=== PATIENT | female | born 1995 | race Caucasian/White ===

== ENCOUNTER 2017-08-25 05:46 | Emergency (ER) | payer BC, OTHER ==
--- NOTE | 2017-08-25 06:37 | ED ---
General Adult HPI - General Chief complaint: Extremity Injury, Upper Stated complaint: hand injury Time Seen by Provider: 08/25/17 06:19 Source: patient, RN notes reviewed, old records reviewed Mode of arrival: ambulatory Limitations: no limitations - History of Present Illness Initial comments: This is a 22-year-old female ER for evaluation. She comes slamming her left thumb in the out of her car. Patient was taking out some groceries at the trunk with her hands to place almost stuck in trunk. Patient was able to get her some out of the truck and comes here for evaluation. She has severe left thumb pain no modifying factors for pain, is able to move thumb in all directions - Related Data Previous Rx's Medication Instructions Recorded Naproxen [Naprosyn] 500 mg PO Q12HR PRN #30 tab 08/25/17 Allergies Allergy/AdvReac Type Severity Reaction Status Date / Time No Known Allergies Allergy Verified 08/25/17 05:54 Review of Systems ROS Statement: Those systems with pertinent positive or pertinent negative responses have been documented in the HPI. ROS Other: All systems not noted in ROS Statement are negative. Past Medical History Additional Past Medical History / Comment(s): Ectopic , genital warts History of Any Multi-Drug Resistant Organisms: None Reported Past Surgical History: Ear Surgery Additional Past Surgical History / Comment(s): Fallopian tube removed - ectopic Past Psychological History: Anxiety Smoking Status: Never smoker Past Alcohol Use History: None Reported Past Drug Use History: None Reported General Exam Limitations: no limitations General appearance: alert, in no apparent distress Head exam: Present: atraumatic, normocephalic, normal inspection Eye exam: Present: normal appearance, PERRL, EOMI. Absent: scleral icterus, conjunctival injection, periorbital swelling ENT exam: Present: normal exam, mucous membranes moist Neck exam: Present: normal inspection. Absent: tenderness, meningismus, lymphadenopathy Respiratory exam: Present: normal lung sounds bilaterally. Absent: respiratory distress, wheezes, rales, rhonchi, stridor Cardiovascular Exam: Present: regular rate, normal rhythm, normal heart sounds. Absent: systolic murmur, diastolic murmur, rubs, gallop, clicks GI/Abdominal exam: Present: soft, normal bowel sounds. Absent: distended, tenderness, guarding, rebound, rigid Extremities exam: Present: normal inspection, full ROM, normal capillary refill. Absent: tenderness, pedal edema, joint swelling, calf tenderness Back exam: Present: normal inspection Neurological exam: Present: alert, oriented X3, CN II-XII intact Psychiatric exam: Present: normal affect, normal mood Skin exam: Present: warm, dry, intact, normal color. Absent: rash Course Vital Signs 08/25/17 05:50 Temperature 98.7 F Pulse Rate 65 Respiratory 18 Rate Blood Pressure 118/76 O2 Sat by Pulse 100 Oximetry - Reevaluation(s) Reevaluation #1: 08/25/17 06:42 Patient's pain is controlled Medical Decision Making - Medical Decision Making 22 female DEL with left thumb injury, contusion. Patient can be discharged home , encouraged ice rest and elevate - Radiology Data Radiology results: report reviewed (X-ray left hand is negative), image reviewed Disposition Clinical Impression: Contusion of left thumb Disposition: HOME SELF-CARE Condition: Good Instructions: Contusion in Adults (ED) Prescriptions: Naproxen [Naprosyn] 500 mg PO Q12HR PRN #30 tab PRN Reason: Pain Referrals: Herminio Calderón MD [Primary Care Provider] - 1-2 days
[2017-08-25] MEDS ORDERED: IBUPROFEN 800 MG TAB PO STA (06:40)
[2017-08-25] MEDS ORDERED: ACETAMINOPHEN TAB 500 MG TAB PO STA (06:40)
[2017-08-25 06:59] VITALS: BP 114/70; PULSE 63; RESP 16; TEMP 98.8
--- NOTE | 2017-08-25 07:35 | XR ---
EXAMINATION TYPE: XR hand complete LT DATE OF EXAM: 08/25/2017 COMPARISON: NONE HISTORY: Pain TECHNIQUE: Slammed left thumb in trunk FINDINGS: No acute fractures are evident. Soft tissues are normal. Joint spaces are preserved. Follow-up exam can be performed 7-10 days from acute trauma for continued pain. IMPRESSION: 1. No acute osseous abnormality.
== END 2017-08-25 06:58 | disposition home or self-care (01) ==
LOC: EC 05:46
DX: S60.012A Contusion of left thumb without damage to nail, initial encounter (principal); W23.0XXA Caught, crushed, jammed, or pinched between moving objects, initial encounter; Y93.89 Activity, other specified
CPT/HCPCS: 99284

== ENCOUNTER → 2017-10-12 | Outpatient (CLI) | payer BC, OTHER ==
--- NOTE | 2017-10-12 09:48 | US ---
EXAMINATION TYPE: US OB <=14 wks transvag DATE OF EXAM: 10/12/2017 COMPARISON: NONE CLINICAL HISTORY: Z34.90 Supervision of Normal . early OB, cramping, A1, h/o tubal ectop ic EXAM PERFORMED: OBTA and OBTV EXAM MEASUREMENTS: GESTATIONAL AGE / DATING Physician Established: Not yet established Dates by LMP: (5 weeks/3 days) EDC: 06/11/2018 Dates by First Scan: PRESSURE TESTER Dates by Current Scan for: Unable to date by today's study MATERNAL ANATOMY Uterus: 8.4 x 6.7 x 4.8cm Right Ovary: 2.8 x 2.4 x 2.3cm Left Ovary: 3.0 x 2.3 x 2.3cm Post CDS / Adnexa: wnl Presence of free fluid: no Presence of corpus luteal cyst: yes, left = 1.8cm Presence of subchorionic bleed: no GESTATION / SURVEY No gestational sac seen at this time Endometrium = 1.3cm TV measurements Date of LMP: 09/04/2017 Beta HcG (if available): not available Anteverted uterus is seen. Endometrium is thickened up to 13 mm. No gestational sac, yolk sac, or fet al pole is identified currently. No free fluid is seen in pelvis. Both ovaries are identified. There is peripheral hypervascular 1.8 cm lesion in left ovary. There is no suspicious extraovarian adnexal lesion identified. IMPRESSION: Findings likely reflect too early to visualize intrauterine however spontaneous is in differential and ectopic is not excluded. Serial beta hCG and ultrasound follow-up advi sed.
== END | disposition home or self-care (01) ==
LOC: RADUSWWP 08:28
PROVIDERS: ATTEND Obstetrics & Gynecology
DX: Z34.90 Encounter for supervision of normal pregnancy, unspecified, unspecified trimester (principal); Z3A.00 Weeks of gestation of pregnancy not specified
CPT/HCPCS: 76801; 76817

== ENCOUNTER 2018-01-12 11:08 | Emergency (ER) | payer BC, OTHER ==
[2018-01-12 11:18] VITALS: BP 126/66; PULSE 98; RESP 18; TEMP 98.9
--- NOTE | 2018-01-12 12:03 | ED ---
General Adult HPI - General Chief complaint: Upper Respiratory Infection Stated complaint: Cough Time Seen by Provider: 01/12/18 11:34 Source: patient, RN notes reviewed Mode of arrival: ambulatory Limitations: no limitations - History of Present Illness Initial comments: Patient's 22-year-old female presents to the emergency room today with her 2 children with chief complaint of cough congestion over the last 2 days. Mother does admit that all the patient's been sick. Admits to some sputum production it's been green in color for herself. She denies any fever. She does admit some aches admits to headaches at times. Denies any other complaints or symptoms. Patient denies any recent fever, chills, shortness of breath, chest pain, back pain, abdominal pain, nausea or vomiting, numbness or tingling, dysuria or hematuria, constipation or diarrhea, visual changes, or any other complaints. - Related Data Home Medications Medication Instructions Recorded Confirmed No Known Home Medications [No 01/12/18 01/12/18 Known Home Medications] Allergies Allergy/AdvReac Type Severity Reaction Status Date / Time No Known Allergies Allergy Verified 01/12/18 11:41 Review of Systems ROS Statement: Those systems with pertinent positive or pertinent negative responses have been documented in the HPI. ROS Other: All systems not noted in ROS Statement are negative. Past Medical History Additional Past Medical History / Comment(s): Ectopic , genital warts History of Any Multi-Drug Resistant Organisms: None Reported Past Surgical History: Ear Surgery Additional Past Surgical History / Comment(s): Fallopian tube removed - ectopic Past Psychological History: Anxiety Smoking Status: Current every day smoker Past Alcohol Use History: None Reported Past Drug Use History: None Reported General Exam - General Exam Comments Initial Comments: General: The patient is awake and alert, in no distress, and does not appear acutely ill. Eye: Pupils are equal, round and reactive to light, extra-ocular movements are intact. No nystagmus. There is normal conjunctiva bilaterally. No signs of icterus. Ears, nose, mouth and throat: There are moist mucous membranes and no oral lesions. Neck: The neck is supple, there is no tenderness or JVD. Cardiovascular: There is a regular rate and rhythm. No murmur, rub or gallop is appreciated. Respiratory: Lungs are clear to auscultation, respirations are non-labored, breath sounds are equal. No wheezes, stridor, rales, or rhonchi. Musculoskeletal: Normal ROM, no tenderness. Strength 5/5. Sensation intact. Neurological: A&O x 3. CN II-XII intact, There are no obvious motor or sensory deficits. Coordination appears grossly intact. Speech is normal. Skin: Skin is warm and dry and no rashes or lesions are noted. Psychiatric: Cooperative Limitations: no limitations Course Vital Signs 01/12/18 11:15 Temperature 98.9 F Pulse Rate 98 Respiratory 18 Rate Blood Pressure 126/66 O2 Sat by Pulse 96 Oximetry Medical Decision Making - Medical Decision Making Advised mother most likely viral illness at this time. Options were discussed about chest x-ray. Patient and family advised follow-up over the next 2 days. Disposition Clinical Impression: Upper respiratory infection Disposition: HOME SELF-CARE Condition: Good Instructions: Upper Respiratory Infection (ED) Is patient prescribed a controlled substance at d/c from ED?: No Referrals: None,Stated [Primary Care Provider] - 1-2 days Time of Disposition: 12:03
== END 2018-01-12 11:40 | disposition home or self-care (01) ==
LOC: EC 11:08
DX: J06.9 Acute upper respiratory infection, unspecified (principal); F17.200 Nicotine dependence, unspecified, uncomplicated
CPT/HCPCS: 99282

== ENCOUNTER 2018-04-02 22:33 | Emergency (ER) | payer BC, OTHER ==
[2018-04-03] MEDS ORDERED: SODIUM CHLORIDE 0.9% 1,000 ML IV STA (00:03)
--- NOTE | 2018-04-03 00:36 | ED ---
General Adult HPI - General Chief complaint: Abdominal Pain Stated complaint: flank pain Time Seen by Provider: 04/02/18 23:40 Source: patient, RN notes reviewed Mode of arrival: ambulatory Limitations: no limitations - History of Present Illness Initial comments: 22-year-old female presents to the emergency department for a chief complaint of abdominal pain 3 days. Patient states she has right lower quadrant pain that comes and goes. She states it is a sharp stabbing pain. Patient states she has been nauseous and vomited twice yesterday. Patient denies any nausea at this time. Patient denies any pain at this time. Patient is not sure what makes the pain worse. Patient has no other complaints at this time including shortness of breath, chest pain, abdominal pain, nausea or vomiting, headache, or visual changes. - Related Data Home Medications Medication Instructions Recorded Confirmed No Known Home Medications 01/12/18 04/02/18 Allergies Allergy/AdvReac Type Severity Reaction Status Date / Time clarithromycin [From Biaxin] Allergy Unknown Verified 04/02/18 23:24 Review of Systems ROS Statement: Those systems with pertinent positive or pertinent negative responses have been documented in the HPI. ROS Other: All systems not noted in ROS Statement are negative. Past Medical History Past Medical History: No Reported History Additional Past Medical History / Comment(s): Ectopic , genital warts History of Any Multi-Drug Resistant Organisms: None Reported Past Surgical History: Ear Surgery Additional Past Surgical History / Comment(s): Fallopian tube removed - ectopic Past Psychological History: Anxiety Smoking Status: Former smoker Past Alcohol Use History: None Reported Past Drug Use History: None Reported General Exam Limitations: no limitations General appearance: alert, in no apparent distress Head exam: Present: atraumatic, normocephalic, normal inspection Eye exam: Present: normal appearance, PERRL, EOMI. Absent: scleral icterus, conjunctival injection, periorbital swelling ENT exam: Present: normal exam, mucous membranes moist Neck exam: Present: normal inspection, full ROM. Absent: tenderness, meningismus, lymphadenopathy Respiratory exam: Present: normal lung sounds bilaterally. Absent: respiratory distress, wheezes, rales, rhonchi, stridor Cardiovascular Exam: Present: regular rate, normal rhythm, normal heart sounds. Absent: systolic murmur, diastolic murmur, rubs, gallop, clicks GI/Abdominal exam: Present: soft, tenderness (RUQ tenderness, + Aguilar sign), normal bowel sounds. Absent: distended, guarding, rebound, rigid, other (neg obturator, psoas signs) Neurological exam: Present: alert, oriented X3, CN II-XII intact Psychiatric exam: Present: normal affect, normal mood Course Vital Signs 04/02/18 04/03/18 22:42 02:40 Temperature 98.3 F 98.0 F Pulse Rate 73 78 Respiratory 18 16 Rate Blood Pressure 111/68 114/71 O2 Sat by Pulse 100 100 Oximetry Medical Decision Making - Medical Decision Making 22-year-old female since to the emergency determine for chief complaint of right lower quadrant pain times 3 days. Pain is intermittent and sharp in nature. He shouldn't admits to nausea and vomiting but denies nausea at this time. Patient vomited twice yesterday. No diarrhea. On exam patient has right upper quadrant tenderness. No right lower quadrant tenderness. Positive Aguilar sign. Ultrasound shows gestational age 7 weeks with a viable intrauterine . No complicating process seen. Gallbladder shows no dilated ducts. Small gallbladder polyp or non-shadowing stone. Normal liver and pancreas. Discussed these findings with patient. Patient is feeling ready to go home. Pain controlled at this time. She is happy about having the ultrasound done. Patient will also follow up with OB. It is likely that her pain is related. She will return to the emergency department if she has any worsening symptoms. - Lab Data Result diagrams: 04/03/18 00:30 04/03/18 00:30 Lab Results 04/02/18 04/02/18 04/03/18 Range/Units 23:50 23:50 00:30 WBC (4.0-11.0) k/uL RBC (3.80-5.40) m/uL Hgb (11.4-16.0) gm/dL Hct (34.0-46.0) % MCV (80.0-100.0) fL MCH (25.0-35.0) pg MCHC (31.0-37.0) g/dL RDW (11.5-15.5) % Plt Count (150-450) k/uL Neutrophils % % Lymphocytes % % Monocytes % % Eosinophils % % Basophils % % Neutrophils # (1.3-7.7) k/uL Lymphocytes # (1.0-4.8) k/uL Monocytes # (0-1.0) k/uL Eosinophils # (0-0.7) k/uL Basophils # (0-0.2) k/uL Hypochromasia Anisocytosis Microcytosis Sodium 139 (137-145) mmol/L Potassium 3.7 (3.5-5.1) mmol/L Chloride 106 (98-107) mmol/L Carbon Dioxide 22 (22-30) mmol/L Anion Gap 11 mmol/L BUN 5 L (7-17) mg/dL Creatinine 0.50 L (0.52-1.04) mg/dL Est GFR (CKD-EPI)AfAm >90 (>60 ml/min/1.73 sqM) Est GFR (CKD-EPI)NonAf >90 (>60 ml/min/1.73 sqM) Glucose 79 (74-99) mg/dL Calcium 9.5 (8.4-10.2) mg/dL Total Bilirubin 0.3 (0.2-1.3) mg/dL AST 17 (14-36) U/L ALT 26 (9-52) U/L Alkaline Phosphatase 59 (38-126) U/L Total Protein 7.3 (6.3-8.2) g/dL Albumin 4.6 (3.5-5.0) g/dL Amylase 63 (30-110) U/L Lipase 60 (23-300) U/L Urine Color Light Yellow Urine Appearance Clear (Clear) Urine pH 6.0 (5.0-8.0) Ur Specific [place] 1.005 (1.001-1.035) Urine Protein Negative (Negative) Urine Glucose (UA) Negative (Negative) Urine Ketones Negative (Negative) Urine Blood Negative (Negative) Urine Nitrite Negative (Negative) Urine Bilirubin Negative (Negative) Urine Urobilinogen <2.0 (<2.0) mg/dL Ur Leukocyte Esterase Negative (Negative) Urine HCG, Qual Detected (Not Detectd) 04/03/18 Range/Units 00:30 WBC 8.5 (4.0-11.0) k/uL RBC 4.86 (3.80-5.40) m/uL Hgb 10.9 L (11.4-16.0) gm/dL Hct 35.8 (34.0-46.0) % MCV 73.7 L (80.0-100.0) fL MCH 22.5 L (25.0-35.0) pg MCHC 30.5 L (31.0-37.0) g/dL RDW 19.7 H (11.5-15.5) % Plt Count 242 (150-450) k/uL Neutrophils % 71 % Lymphocytes % 20 % Monocytes % 6 % Eosinophils % 2 % Basophils % 0 % Neutrophils # 6.0 (1.3-7.7) k/uL Lymphocytes # 1.7 (1.0-4.8) k/uL Monocytes # 0.5 (0-1.0) k/uL Eosinophils # 0.1 (0-0.7) k/uL Basophils # 0.0 (0-0.2) k/uL Hypochromasia Slight Anisocytosis Slight Microcytosis Moderate Sodium (137-145) mmol/L Potassium (3.5-5.1) mmol/L Chloride (98-107) mmol/L Carbon Dioxide (22-30) mmol/L Anion Gap mmol/L BUN (7-17) mg/dL Creatinine (0.52-1.04) mg/dL Est GFR (CKD-EPI)AfAm (>60 ml/min/1.73 sqM) Est GFR (CKD-EPI)NonAf (>60 ml/min/1.73 sqM) Glucose (74-99) mg/dL Calcium (8.4-10.2) mg/dL Total Bilirubin (0.2-1.3) mg/dL AST (14-36) U/L ALT (9-52) U/L Alkaline Phosphatase (38-126) U/L Total Protein (6.3-8.2) g/dL Albumin (3.5-5.0) g/dL Amylase (30-110) U/L Lipase (23-300) U/L Urine Color Urine Appearance (Clear) Urine pH (5.0-8.0) Ur Specific [place] (1.001-1.035) Urine Protein (Negative) Urine Glucose (UA) (Negative) Urine Ketones (Negative) Urine Blood (Negative) Urine Nitrite (Negative) Urine Bilirubin (Negative) Urine Urobilinogen (<2.0) mg/dL Ur Leukocyte Esterase (Negative) Urine HCG, Qual (Not Detectd) Disposition Clinical Impression: Intrauterine Disposition: HOME SELF-CARE Condition: Good Instructions: Abdominal Pain in (ED) Additional Instructions: Please follow up with primary care in 1-2 days. Please follow-up with OB in 1- 2 days. Return to the emergency department if you have any worsening symptoms. Take Tylenol for pain. Is patient prescribed a controlled substance at d/c from ED?: No Referrals: Nonstaff,Physician [Primary Care Provider] - 1-2 days Deya Isaac MD [STAFF PHYSICIAN] - 1-2 days Time of Disposition: 02:31
[2018-04-03 00:42] LABS: Anisocytosis Slight; Basophils % (A) 0 %; Eosinophils # (A) 0.1 k/uL (0-0.7); Eosinophils % (A) 2 %; HCT 35.8 % (34.0-46.0); HGB 10.9 gm/dL (11.4-16.0); Hypochromasia Slight; Lymphocytes # (A) 1.7 k/uL (1.0-4.8); Lymphocytes % (A) 20 %; MCH 22.5 pg (25.0-35.0); MCHC 30.5 g/dL (31.0-37.0); MCV 73.7 fL (80.0-100.0); Mean Platelet Volume 7.2; Microcytosis Moderate; Monocytes # (A) 0.5 k/uL (0-1.0); Monocytes % (A) 6 %; Neutrophils % (A) 71 %; Platelet Count 242 k/uL (150-450); RBC 4.86 m/uL (3.80-5.40); RDW 19.7 % (11.5-15.5); WBC 8.5 k/uL (4.0-11.0)
[2018-04-03 00:50] LABS: ALT 26 U/L (9-52); AST 17 U/L (14-36); Albumin 4.6 g/dL (3.5-5.0); Alkaline Phosphatase 59 U/L (38-126); Amylase 63 U/L (30-110); Anion Gap 11 mmol/L; Blood Urea Nitrogen 5 mg/dL (7-17); Calcium 9.5 mg/dL (8.4-10.2); Carbon Dioxide 22 mmol/L (22-30); Chloride 106 mmol/L (98-107); Glucose 79 mg/dL (74-99); Lipase 60 U/L (23-300); Potassium 3.7 mmol/L (3.5-5.1); Sodium 139 mmol/L (137-145); Total Bilirubin 0.3 mg/dL (0.2-1.3); Total Protein 7.3 g/dL (6.3-8.2)
[2018-04-03 00:54] LABS: Appearance,Urine Clear (Clear); Bilirubin,Urine Negative (Negative); Blood,Urine Negative (Negative); Color,Urine Light Yellow; Glucose,Urine (UA) Negative (Negative); Ketones,Urine Negative (Negative); Leukocyte Esterase,Urine Negative (Negative); Nitrite,Urine Negative (Negative); Protein,Urine Negative (Negative); Specific Gravity,Urine 1.005 (1.001-1.035); Urobilinogen,Urine <2.0 mg/dL (<2.0)
--- NOTE | 2018-04-03 01:58 | US ---
EXAMINATION TYPE: Transabdominal DATE OF EXAM: 12/05/17 COMPARISON: NONE CLINICAL HISTORY: Pain. pain EXAM PERFORMED: Transabdominal (TA) EXAM MEASUREMENTS: GESTATIONAL AGE / DATING Physician Established: Not yet established Dates by LMP: LMP unknown Dates by First Scan: No previous this is first scan Dates by Current Scan for: (7 weeks/1 days) EDC: 11/19/2018 MATERNAL ANATOMY Uterus: 10.3 x 5.9 x 7.5 cm Right Ovary: 2.2 x 1.6 x 1.6 cm Left Ovary: 3.0 x 2.0 x 1.9 cm Post CDS / Adnexa: wnl Presence of free fluid: no Presence of corpus luteal cyst: no Presence of subchorionic bleed: no GESTATION / SURVEY CRL: (7 weeks/1 days) Yolk Sac (normal less than 6mm): 3mm Heart Rate: 139 bpm Rhythm: Normal IUP: Viable IUP Beta HcG (if available): Not available at this time Viable IUP 7w 1d GEOFFREY 11/19/2018 HR 139 BPM IMPRESSION: The ultrasound gestational age is 7 weeks 1 day. No complicating process seen.
--- NOTE | 2018-04-03 02:03 | US ---
EXAMINATION TYPE: US gallbladder DATE OF EXAM: 04/03/2018 COMPARISON: NONE CLINICAL HISTORY: Pain. PAIN EXAM MEASUREMENTS: Liver Length: 16.8 cm Gallbladder Wall: 0.3 cm CBD: 0.4 cm Right Kidney: 10.8 X 3.9 X 4.3 cm Pancreas: wnl Liver: wnl Gallbladder: Echogenic foci seen non mobile. Evidence for sonographic Aguilar's sign: No CBD: wnl Right Kidney: wnl IMPRESSION: No dilated ducts. Small gallbladder polyp or nonshadowing stone. Normal liver and pancrea s.
[2018-04-03 02:43] VITALS: BP 114/71; PULSE 78; RESP 16; TEMP 98
== END 2018-04-03 02:47 | disposition home or self-care (01) ==
LOC: EC 22:33
DX: O99.89 Other specified diseases and conditions complicating pregnancy, childbirth and the puerperium (principal); R10.31 Right lower quadrant pain; Z3A.01 Less than 8 weeks gestation of pregnancy; Z87.891 Personal history of nicotine dependence; Z88.1 Allergy status to other antibiotic agents
CPT/HCPCS: 36415; 76705; 76801; 80053; 81003; 81025; 82150; 83690; 84702; 85025; 96360; 99284

== ENCOUNTER 2019-01-01 17:49 | Emergency (ER) | payer BC, OTHER ==
[2019-01-01 18:05] VITALS: BP 127/78; PULSE 63; RESP 18; TEMP 98.3
[2019-01-01] MEDS ORDERED: SODIUM CHLORIDE 0.9% 1,000 ML IV STA ×2 (18:12)
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
[2019-01-01 19:35] LABS: Appearance,Urine Clear (Clear); Bilirubin,Urine Negative (Negative); Blood,Urine Negative (Negative); Color,Urine Light Yellow; Glucose,Urine (UA) Negative (Negative); Ketones,Urine Negative (Negative); Leukocyte Esterase,Urine Negative (Negative); Nitrite,Urine Negative (Negative); Protein,Urine Negative (Negative); Specific Gravity,Urine 1.007 (1.001-1.035); Urobilinogen,Urine <2.0 mg/dL (<2.0)
[2019-01-01 19:37] LABS: Amphetamine Screen,Urine Not Detected (NotDetected); Barbiturate Screen,Urine Not Detected (NotDetected); Benzodiazepines Screen,Urine Not Detected (NotDetected); Cocaine Screen,Urine Not Detected (NotDetected); Methadone Screen, Urine Not Detected (NotDetected); Opiate Screen,Urine Not Detected (NotDetected); Oxycodone Screen, Urine Not Detected (NotDetected); Phencyclidine Screen,Urine Not Detected (NotDetected); Tricyclic Antidepressant,Urine Not Detected (NotDetected); Urn Cannabinoid Scrn Detected (NotDetected)
== END 2019-01-01 20:31 | disposition left against medical advice (07) ==
LOC: EC 17:49
DX: R55 Syncope and collapse (principal); R11.0 Nausea; R53.1 Weakness; R42 Dizziness and giddiness; Z53.29 Procedure and treatment not carried out because of patient's decision for other reasons; Z87.891 Personal history of nicotine dependence; Z88.1 Allergy status to other antibiotic agents; V89.2XXA Person injured in unspecified motor-vehicle accident, traffic, initial encounter; Y92.410 Unspecified street and highway as the place of occurrence of the external cause
CPT/HCPCS: 80306; 81003; 81025; 93005; 99284